=== PATIENT | female | born 1960 ===

== ENCOUNTER 2016-05-28 18:43 | Emergency (ER) | payer SELFPAY ==
[2016-05-28] MEDS ORDERED: BENZONATATE 100 MG CAPSULE PO STA (20:28)
[2016-05-28] MEDS ORDERED: guaiFENesin/CODEINE 5 ML UDC PO STA (20:28)
[2016-05-28] MEDS ORDERED: guaiFENesin/CODEINE 5 ML UDC ONE (20:31)
[2016-05-28] MEDS ORDERED: BENZONATATE 100 MG CAPSULE PO ONE (20:31)
[2016-05-28] MEDS ORDERED: IOPAMIDOL-300 100 ML VIAL IVP ONE (21:20)
[2016-05-28] MEDS ORDERED: AZITHROMYCIN 250 MG TABLET PO STA (22:50)
[2016-05-28] MEDS ORDERED: DEXAMETHASONE 10 MG/ML VIAL PO STA (22:50)
[2016-05-28] MEDS ORDERED: ALBUTEROL 8 GM INHALER INH STA (22:50)
[2016-05-28] MEDS ORDERED: AZITHROMYCIN 250 MG TABLET PO ONE (22:53)
[2016-05-28] MEDS ORDERED: CHERRY SYRUP 10 ML UDC PO ONE (22:53)
[2016-05-28] MEDS ORDERED: DEXAMETHASONE 10 MG/ML VIAL ONE (22:53)
[2016-05-28] MEDS ORDERED: ALBUTEROL 8 GM INHALER INH ONE (23:15)
== END 2016-05-28 23:36 | disposition home or self-care (01) ==
DX: J40 Bronchitis, not specified as acute or chronic (principal); Z86.11 Personal history of tuberculosis
CPT/HCPCS: 36415; 71020; 71260; 80048; 85025; 94640; 94664; 99283; 99284; A9270; Q9967

== ENCOUNTER 2016-05-28 19:47 | Outpatient (CLI) | payer SELFPAY | END 2016-05-28 19:48 | disposition home or self-care (01) | DX: A15.9 Respiratory tuberculosis unspecified (principal) ==

== ENCOUNTER 2018-11-03 22:25 | Emergency (ER) | payer SELFPAY ==
[2018-11-03] MEDS ORDERED: SODIUM CHLORIDE 0.9% 1,000 ML IV ONE (22:40)
[2018-11-03] MEDS ORDERED: IPRATROPIUM/ALBUTEROL 3 ML NEB INH STA (22:40)
--- NOTE | 2018-11-03 22:43 | ED Physician Documentation ---
PD HPI URI - Stated complaint Stated Complaint: FEVER,COUGH - Chief complaint Chief Complaint: Resp - History obtained from History obtained from: Patient, Family - History of Present Illness Timing - onset: How many days ago (2) Timing duration: Days (2) Timing details: Gradual onset, Still present Associated symptoms: Fever, Chills, Dry cough, Dyspnea Improves by: Rest, Medication Worsened by: Activity Similar symptoms before: Diagnosis (bronchitis) Recently seen: Not recently seen - Additional information Additional information: Previously healthy 58-year-old female with a prior history of TB has developed a cough and fever. She had similar symptoms 2 years ago and was treated here for bronchitis and improved. She has been treated fully for her TB and she does have scars on her chest x-ray. [address] years [address] required [address] scanning to differentiate. Review of Systems Constitutional: reports: Fever, Chills, Fatigue Eyes: denies: Decreased vision Ears: denies: Ear pain Nose: reports: Congestion. denies: Rhinorrhea / runny nose Throat: denies: Sore throat Cardiac: denies: Chest pain / pressure, Palpitations Respiratory: reports: Dyspnea, Cough GI: denies: Nausea, Vomiting : denies: Dysuria PD PAST MEDICAL HISTORY - Past Medical History Past Medical History: Yes Cardiovascular: Hypertension Respiratory: Tuberculosis Neuro: None Endocrine/Autoimmune: None GI: None CATERING SERVICE MANAGER: None : None HEENT: None Psych: None Musculoskeletal: None Derm: None - Past Surgical History Past Surgical History: No - Present Medications Home Medications: Ambulatory Orders Medication Instructions Recorded Confirmed Azithromycin [Zithromax] 250 mg PO DAILY #6 tablet 05/28/16 Benzonatate [Tessalon] 100 mg PO TID PRN #20 capsule 05/28/16 dexAMETHasone [Decadron] 4 mg PO DAILY #5 tablet 05/28/16 guaiFENesin/CODEINE [Robitussin AC] 10 ml PO Q6H PRN #240 ml 05/28/16 Albuterol Sulf [Ventolin Hfa 1 - 2 puffs INH Q4HR PRN #1 inhaler 11/04/18 Inhaler] Azithromycin [Zithromax] 250 mg PO DAILY #6 tablet 11/04/18 predniSONE [Prednisone] 40 mg PO DAILY #10 tablet 11/04/18 - Allergies Allergies/Adverse Reactions: Allergies Allergy/AdvReac Type Severity Reaction Status Date / Time No Known Drug Allergies Allergy Verified 11/03/18 22:37 - Social History Does the pt smoke?: No Smoking Status: Never smoker Does the pt drink ETOH?: No Does the pt have substance abuse?: No - Immunizations Immunizations are current?: Yes - POLST Patient has POLST: No PD ED PE NORMAL - Vitals Vital signs reviewed: Yes (febrile ) - General General: No acute distress, Well developed/nourished - HEENT HEENT: Atraumatic, PERRL, EOMI, Ears normal, Other (dry mucous membranes ) - Neck Neck: Supple, no meningeal sign, No bony TTP - Cardiac Cardiac: RRR, No murmur - Respiratory Respiratory: No respiratory distress, Other (scattered wheezes bilat) - Abdomen Abdomen: Soft, Non tender - Back Back: No CVA TTP, No spinal TTP - Derm Derm: Normal color, Warm and dry, No rash - Extremities Extremities: No deformity, Normal ROM s pain, No edema, No calf tenderness / cord - Neuro Neuro: Alert and oriented X 3, tube operator 2-12 intact, No motor deficit, No sensory deficit, Normal speech Eye Opening: Spontaneous Motor: Obeys Commands Verbal: Oriented GCS Score: 15 - Psych Psych: Normal mood, Normal affect Results - Vitals Vitals: Vital Signs - 24 hr 11/03/18 11/03/18 11/03/18 22:36 22:48 22:49 Temperature 38.6 C H Heart Rate 93 77 74 Respiratory 19 20 17 Rate Blood Pressure 121/70 132/94 H O2 Saturation 97 100 11/03/18 11/03/18 11/03/18 23:04 23:15 23:19 Temperature Heart Rate 93 82 Respiratory 18 17 16 Rate Blood Pressure 117/93 H O2 Saturation 97 96 11/03/18 11/04/18 23:46 00:37 Temperature 100.2 C H Heart Rate 82 77 Respiratory 18 17 Rate Blood Pressure 137/91 H 112/69 O2 Saturation 98 94 Oxygen O2 Source Room air - Labs Labs: Laboratory Tests 11/03/18 11/03/18 11/03/18 20:51 22:47 22:47 WBC 15.2 H RBC 3.67 L Hgb 10.7 L Hct 31.5 L MCV 85.8 MCH 29.2 MCHC 34.0 RDW 13.0 Plt Count 300 MPV 9.1 Neut # (Auto) 11.5 H Lymph # (Auto) 1.9 Addison # (Auto) 1.5 H Eos # (Auto) 0.1 Baso # (Auto) 0.1 Absolute Nucleated RBC 0.00 Nucleated RBC % 0.0 Sodium 131 L Potassium 3.4 L Chloride 97 L Carbon Dioxide 22 Anion Gap 12.0 BUN 5 L Creatinine 0.8 Estimated GFR (MDRD) 73 L Glucose 200 H Lactic Acid 1.0 Calcium 8.6 Total Bilirubin 0.9 AST 81 H ALT 77 H Alkaline Phosphatase 154 H Troponin I Total Protein 7.4 Albumin 3.4 Globulin 4.0 Albumin/Globulin Ratio 0.9 L Lipase 25 Urine Color Urine Clarity Urine pH Ur Specific [place] Urine Protein Urine Glucose (UA) Urine Ketones Urine Occult Blood Urine Nitrite Urine Bilirubin Urine Urobilinogen Ur Leukocyte Esterase Urine RBC Urine WBC Ur Squamous Epith Cells Urine Bacteria Ur Microscopic Review Urine Culture Comments 11/03/18 11/04/18 22:47 00:40 WBC RBC Hgb Hct MCV MCH MCHC RDW Plt Count MPV Neut # (Auto) Lymph # (Auto) Addison # (Auto) Eos # (Auto) Baso # (Auto) Absolute Nucleated RBC Nucleated RBC % Sodium Potassium Chloride Carbon Dioxide Anion Gap BUN Creatinine Estimated GFR (MDRD) Glucose Lactic Acid Calcium Total Bilirubin AST ALT Alkaline Phosphatase Troponin I < 0.04 Total Protein Albumin Globulin Albumin/Globulin Ratio Lipase Urine Color YELLOW Urine Clarity CLEAR Urine pH 7.0 Ur Specific [place] <=1.005 Urine Protein NEGATIVE Urine Glucose (UA) NEGATIVE Urine Ketones NEGATIVE Urine Occult Blood MODERATE H Urine Nitrite NEGATIVE Urine Bilirubin NEGATIVE Urine Urobilinogen 1 (NORMAL) Ur Leukocyte Esterase NEGATIVE Urine RBC 6-10 H Urine WBC 0-3 Ur Squamous Epith Cells RARE Squamous Urine Bacteria None Seen Ur Microscopic Review INDICATED Urine Culture Comments NOT INDICATED - Rads (name of study) chest 2 view Radiology: Prelim report reviewed (Impression: Chronic bilateral mid to upper lung zone scarring without definite acute process in the chest.), EMP read indepedently, See rad report Procedures - IVC sono (time) 2240 Bedside IVC sono: IVC measures (cm) (0.94), IVC collapsed c insp (cm) (complete), Dehydration (est 2 liter deficit.) PD MEDICAL DECISION MAKING - ED course Complexity details: reviewed old records, reviewed results, re-evaluated patient, considered differential, d/w patient, d/w family ED course: 58-year-old female with a prior history of TB which has been treated has now developed cough fever and dyspnea. She has had successful treatment with symptoms similar to years ago. She has not had issues in between. Today her chest x-ray shows extensive scarring from her prior TB and on comparison of chest x-ray from previously there appears to be a spot on the prior chest x-ray that is now gone in the right base and a spot on today's x-ray in the left base that appears new. She is treated here in the emergency department with IV Rocephin will place on a course of azithromycin provide an inhaler and a short course of prednisone. Departure - Departure Disposition: 01 Home, Self Care Clinical Impression: Pneumonia Qualifiers: Pneumonia type: due to unspecified organism Laterality: left Lung location: lower lobe of lung Qualified Code(s): J18.1 - Lobar pneumonia, unspecified organism Condition: Stable Instructions: ED Pneumonia Adult Follow-Up: YADY CHURCH [Primary Care Provider] - Prescriptions: Albuterol Sulf [Ventolin Hfa Inhaler] 1 - 2 puffs INH Q4HR PRN #1 inhaler PRN Reason: Shortness Of Air/Wheezing Azithromycin [Zithromax] 250 mg PO DAILY #6 tablet predniSONE [Prednisone] 40 mg PO DAILY #10 tablet
[2018-11-03 22:56] LABS: BASOPHILS # (AUTO) 0.1 10^3/uL (0.0-0.1); BASOPHILS % (AUTO) 0.5 %; EOSINOPHILS # (AUTO) 0.1 10^3/uL (0.0-0.7); EOSINOPHILS % (AUTO) 0.6 %; HGB - HEMOGLOBIN 10.7 g/dL (12.0-16.0); LYMPHOCYTES # (AUTO) 1.9 10^3/uL (1.5-3.5); LYMPHOCYTES % (AUTO) 12.7 %; MEAN CORPUSCULAR HEMOGLOBIN 29.2 pg (27.0-31.0); MEAN CORPUSCULAR VOLUME 85.8 fL (81.0-99.0); MEAN PLATELET VOLUME 9.1 fL (7.9-10.8); MONOCYTES # (AUTO) 1.5 10^3/uL (0.0-1.0); MONOCYTES % (AUTO) 9.6 %; NEUTROPHILS # (AUTO) 11.5 10^3/uL (1.5-6.6); NEUTROPHILS % (AUTO) 75.5 %; PLT - PLATELET COUNT 300 10^3/uL (130-450); RED BLOOD COUNT 3.67 10^6/uL (4.20-5.40); WHITE BLOOD COUNT 15.2 x10^3/uL (4.8-10.8)
[2018-11-03 23:10] LABS: ALBUMIN 3.4 g/dL (3.2-5.5); ALBUMIN/GLOBULIN RATIO 0.9 (1.0-2.2); BILIRUBIN,TOTAL 0.9 mg/dL (0.2-1.0); CALCIUM 8.6 mg/dL (8.5-10.3); CREATININE 0.8 mg/dL (0.4-1.0); TOTAL PROTEIN 7.4 g/dL (6.7-8.2)
--- NOTE | 2018-11-03 23:31 | XRAY Report ---
Reason: fever cough Procedure Date: 11/03/2018 Accession Number: [id number] / [id number] Procedure: XR - Chest 2 View X-Ray CPT Code: 55903 FULL RESULT: EXAM: CHEST RADIOGRAPHY EXAM DATE: 11/03/2018 11:21 PM. CLINICAL HISTORY: Fever cough. COMPARISON: CHEST 2 VIEW PA/LAT 05/28/2016 7:09 PM CHEST W/ 05/28/2016 9:10 PM. TECHNIQUE: 2 views. FINDINGS: Lungs/Pleura: Chronic bilateral mid to upper lung zone airspace opacities/scarring. No definitive new opacity seen. No gross pneumothorax or effusion. Mediastinum: Heart size normal. Chronic upper lobe volume loss with retraction of the hilar regions. Other: None. IMPRESSION: Chronic bilateral mid to upper lung zone scarring without definite acute process in the chest. [facility]
[2018-11-03] MEDS ORDERED: cefTRIAXone 1 GM in SODIUM CHLORIDE 0.9% MINIBAG 100 ML IV STA (23:43)
[2018-11-04] MEDS ORDERED: POTASSIUM CHLORIDE 20 MEQ TABLET PO STA (00:28)
[2018-11-04 00:38] VITALS: BP 112/69
[2018-11-04 00:46] LABS: BILIRUBIN,URINE NEGATIVE (NEGATIVE); GLUCOSE, URINE (UA) NEGATIVE (NEGATIVE); KETONES,URINE (UA) NEGATIVE (NEGATIVE); LEUKOCYTE ESTERASE, URINE NEGATIVE (NEGATIVE); NITRITE,URINE NEGATIVE (NEGATIVE); OCCULT BLOOD,URINE MODERATE (NEGATIVE); PROTEIN,URINE NEGATIVE (NEGATIVE); UROBILINOGEN,URINE 1 (NORMAL) E.U./dL (NORMAL)
[2018-11-04 00:47] LABS: CLARITY,URINE CLEAR (CLEAR)
[2018-11-04 00:53] LABS: BACTERIA,URINE None Seen /HPF (None Seen); SQUAMOUS EPITHELIAL CELL,UR RARE Squamous (<= Few)
== END 2018-11-04 01:19 | disposition home or self-care (01) ==
LOC: ED 22:25
DX: J18.1 Lobar pneumonia, unspecified organism (principal); E86.0 Dehydration; I10 Essential (primary) hypertension; Z86.11 Personal history of tuberculosis
CPT/HCPCS: 36415; 71046; 80053; 81001; 83605; 83690; 84484; 85025; 87040; 94640; 96361; 96374; 99284; A9270; 81003; 87086